=== PATIENT | male | born 1995 | race Caucasian/White ===

== ENCOUNTER 2016-08-25 06:35 | Emergency (ER) | payer OTHER ==
[2016-08-25] MEDS ORDERED: Sodium Chloride 0.9% 1,000 ML ONE (07:24)
[2016-08-25] MEDS ORDERED: Ondansetron HCl/PF 4 MG/2 ML Vial ONE (07:25)
[2016-08-25 07:38] LABS: PTT 28.1 SEC (22.9-36.1); Prothrombin Time 12.9 SEC (12.0-14.7)
[2016-08-25 07:40] LABS: D-Dimer Test Less than 0.27 *mcg/mL (0.27-0.43)
[2016-08-25 07:41] LABS: CRP (Inflammatory) Less than 0.50 mg/dL (= or < 0.5); Magnesium 2.5 mg/dL (1.6-2.6)
[2016-08-25 07:44] LABS: Band 4 % (5-11); Eosinophils 3 % (0-10); Hemoglobin 18.1 g/dL (14.0-18.0); Lymphocytes 39 % (21-51); MDiff Complete? YES; Mean Corpuscular HGB CONC 34.3 g/dL (32.0-36.0); Mean Corpuscular Hemoglobin 29.9 pg (27.0-31.0); Mean Corpuscular Volume 87.2 fl (80.0-94.0); Mean Platelet Volume 10.8 fL (7.4-10.4); Monocytes 3 % (0-10); Neutrophil 50 % (42-75); PLT Morphology Comment Appears Adequate; Platelet Count 210 thou/uL (130-400); RBC Distribution Width 11.4 % (11.5-14.5); RBC Morphology Normal; Red Blood Cell (RBC) Count 6.04 mill/uL (4.70-6.10); White Blood Cell (WBC) Count 15.8 thou/uL (4.8-10.8)
[2016-08-25 07:48] LABS: ALT (SGPT) 34 U/L (8-55); AST (SGOT) 20 U/L (5-34); Albumin 4.9 g/dL (3.5-5.0); Alkaline Phosphatase 76 U/L (40-150); Anion Gap 16 mmol/L (10-20); BUN (Urea Nitrogen) 9 mg/dL (8.9-20.6); Bilirubin, Total 0.5 mg/dL (0.2-1.2); CKMB 0.6 ng/mL (0-6.6); Calc. Creatinine Clearance 0 mL/min (70-130); Calcium 10.2 mg/dL (7.8-10.44); Carbon Dioxide 25 mmol/L (22-29); Chloride 105 mmol/L (98-107); Estimated GFR-MDRD 80; Globulin 3.3 g/dL (2.4-3.5); Glucose 94 mg/dL (70-105); Protein, Total 8.2 g/dL (6.0-8.3); Sodium 142 mmol/L (136-145); Troponin I Less than 0.010 ng/mL (< 0.028)
[2016-08-25 08:16] LABS: Amphetamine Not Detected (NotDetected); Barbiturates Screen Not Detected (NotDetected); Benzodiazepine Screen Not Detected (NotDetected); Cocaine Metabolite Screen Not Detected (NotDetected); Medtox Control Line Valid? VALID (VALID); Methadone Not Detected (NotDetected); Methamphetamine Not Detected (NotDetected); Opiate Screen Not Detected (NotDetected); Oxycodone Screen Not Detected (NotDetected); Phencyclidine (PCP) Not Detected (NotDetected); THC/Cannabinoid Screen Not Detected (NotDetected); Tricyclic Screen Not Detected (NotDetected)
[2016-08-25] MEDS ORDERED: HYDROcodone/Acetaminophen 10/325 mg Tablet ONE (08:35)
[2016-08-25] MEDS ORDERED: Amoxicillin/Potassium Clav 500 MG TAB ONE (08:37)
[2016-08-25] MEDS ORDERED: AMOXicillin 250 MG CAP ONE ×2 (08:38→08:40)
--- NOTE | 2016-08-25 09:25 | RAD ---
FRONTAL VIEW CHEST: Comparison: None. Indication: Neck pain, new onset. FINDINGS: Lungs are clear. No effusion or pneumothorax. Cardiac silhouette is normal in size. Osseous structur es are intact. IMPRESSION: No focal consolidation. POS: [facility]
--- NOTE | 2016-08-25 09:27 | CT ---
CT OF NECK WITH 3D REFORMATING: Clinical history: New onset neck pain. Comparison: None. FINDINGS: There is a degree of patient motion that distorts imaging of anatomy and limits the assessment. Ther e is a relative diminished contrast density within the intravascular aspect of the distal neck. 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 No evidence of an acute dissection of the major arterial system of the neck. No high grade occlusion of the carotid arterial system or vertebral arteries. Incidental note of right -sided laryngocele. IMPRESSION: No acute arterial pathology within the neck. POS: [facility]
== END 2016-08-25 08:52 | disposition home or self-care (01) ==
LOC: NAV ERS 06:35
DX: R07.9 Chest pain, unspecified (principal); K08.89 Other specified disorders of teeth and supporting structures; J45.909 Unspecified asthma, uncomplicated; F17.210 Nicotine dependence, cigarettes, uncomplicated
CPT/HCPCS: 36415; 70498; 71010; 80053; 80306; 82553; 83605; 83735; 84484; 85025; 85379; 85610; 85652; 85730; 86140; 93005; 96361; 96374; 96375; J2270; J2405; J7050

== ENCOUNTER 2018-02-01 13:01 | Emergency (ER) | payer SELFPAY ==
--- NOTE | 2018-02-01 14:20 | RAD ---
LEFT FINGER THREE VIEWS: History: Injury. Pain in the left ring finger. FINDINGS/IMPRESSION: No fracture or dislocation is seen. POS: [facility]
== END 2018-02-01 13:50 | disposition home or self-care (01) ==
LOC: NAV ERS 13:01
DX: S63.615A Unspecified sprain of left ring finger, initial encounter (principal); J45.909 Unspecified asthma, uncomplicated; Z87.891 Personal history of nicotine dependence; W19.XXXA Unspecified fall, initial encounter

== ENCOUNTER → 2018-06-09 | Emergency (ER) | payer SELFPAY ==
[~2018-06-09] MED LIST: Ketorolac Tromethamine 30 MG/ML VIAL ONE
--- NOTE | 2018-06-09 11:10 | RAD ---
SINGLE VIEW OF THE CHEST: COMPARISON: 08/25/2016. HISTORY: Chest pain. FINDINGS: Single view of the chest shows a normal sized cardiomediastinal silhouette. There is no evidence of c onsolidation, mass, or pleural effusion. The bones are unremarkable. IMPRESSION: No evidence of acute cardiopulmonary disease. POS: [facility]
== END ==
LOC: NAV ERS 09:43
DX: R07.9 Chest pain, unspecified (principal); G56.22 Lesion of ulnar nerve, left upper limb; J45.909 Unspecified asthma, uncomplicated; F17.210 Nicotine dependence, cigarettes, uncomplicated
CPT/HCPCS: 71045; 93005; 96372; J1885

== ENCOUNTER 2018-08-03 01:04 | Emergency (ER) | payer SELFPAY ==
[2018-08-03] MEDS ORDERED: Lidocaine 1% (PF) 30 ML VIAL ONE (01:24)
[2018-08-03] MEDS ORDERED: Ondansetron ODT 4 MG TAB ONE (01:43)
[2018-08-03] MEDS ORDERED: Morphine 4 MG/ML VIAL ONE (01:43)
[2018-08-03] MEDS ORDERED: Sulfameth/Trimethoprim DS 800-160mg TAB ONE (01:43)
== END 2018-08-03 02:15 | disposition home or self-care (01) ==
LOC: NAV ERS 01:04
DX: L05.01 Pilonidal cyst with abscess (principal); J45.909 Unspecified asthma, uncomplicated; F17.210 Nicotine dependence, cigarettes, uncomplicated
CPT/HCPCS: 96372; J2001; J2270; Q0162

== ENCOUNTER 2018-08-06 09:46 | Emergency (ER) | payer SELFPAY ==
[2018-08-06] MEDS ORDERED: Sodium Chloride 0.9% 1,000 ML ONE (10:17)
[2018-08-06] MEDS ORDERED: Clindamycin 300 MG/2 ML VIAL ONE (10:17)
[2018-08-06] MEDS ORDERED: Ondansetron PF 4 MG/2 ML Vial ONE (10:35)
[2018-08-06 10:37] LABS: #Basophils 0.2 thou/uL (0.0-0.2); #Eosinphils 0.1 thou/uL (0.0-0.7); #Lymphocytes 3.9 thou/uL (1.20-3.40); #Monocytes 1.1 thou/uL (0.11-0.59); #Neutrophils 11.3 thou/uL (1.40-6.50); %Eosinophils 0.8 % (0.0-10.0); %Lymphocytes 23.5 % (21.0-51.0); %Monocytes 6.4 % (0.0-10.0); %Neutrophils 68.4 % (42.0-75.0); Hemoglobin 16.2 g/dL (14.0-18.0); Mean Corpuscular HGB CONC 33.1 g/dL (32.0-36.0); Mean Corpuscular Hemoglobin 29.3 pg (27.0-31.0); Mean Corpuscular Volume 88.6 fL (78.0-98.0); Mean Platelet Volume 9.3 fL (7.4-10.4); Platelet Count 240 thou/uL (130-400); RBC Distribution Width 10.9 % (11.5-14.5); Red Blood Cell (RBC) Count 5.51 mill/uL (4.70-6.10); White Blood Cell (WBC) Count 16.6 thou/uL (4.8-10.8)
[2018-08-06 10:47] LABS: Bilirubin Small (Negative); Blood, Urine Negative (Negative); Clarity Clear (Clear); Glucose, Urine (Dipstick) Negative (Negative); Leukocyte Negative (Negative); Nitrite Negative (Negative); Protein, Urine (Dipstick) 30 mg/dL (Neg-Trace); pH, Urine 5.5 (5.0-9.0)
[2018-08-06 10:53] LABS: Specific Gravity, Urine 1.033 (1.002-1.036)
[2018-08-06 10:55] LABS: ALT (SGPT) 24 U/L (8-55); AST (SGOT) 27 U/L (5-34); Albumin 4.4 g/dL (3.5-5.0); Alkaline Phosphatase 67 U/L (40-150); Anion Gap 17 mmol/L (10-20); BUN (Urea Nitrogen) 11 mg/dL (8.9-20.6); Bilirubin, Total 0.6 mg/dL (0.2-1.2); Calc. Creatinine Clearance 0 mL/min (70-130); Calcium 9.9 mg/dL (7.8-10.44); Carbon Dioxide 23 mmol/L (22-29); Chloride 100 mmol/L (98-107); Estimated GFR-MDRD 56; Globulin 3.1 g/dL (2.4-3.5); Glucose 112 mg/dL (70-105); Protein, Total 7.5 g/dL (6.0-8.3); Sodium 136 mmol/L (136-145)
[2018-08-06 10:55] LABS: Bacteria/HPF None Seen HPF (None Seen); Hyaline Casts/LPF 0-3 HYALINE CAST LPF (0-3 Hyaline); Other Microscopic Description 4+ MUCUS; RBC/HPF 0-3 HPF (0-3); Squamous Epithelial 0-3 HPF (0-3); WBC/HPF None Seen HPF (0-3)
== END 2018-08-06 12:00 | disposition home or self-care (01) ==
LOC: NAV ERS 09:46
DX: R11.2 Nausea with vomiting, unspecified (principal); L05.01 Pilonidal cyst with abscess; J45.909 Unspecified asthma, uncomplicated; F17.210 Nicotine dependence, cigarettes, uncomplicated; Z79.899 Other long term (current) drug therapy
CPT/HCPCS: 80053; 81003; 81015; 85025; 96361; 96365; 96375; J2405; J3490; J7050

== ENCOUNTER 2019-02-07 07:29 | Emergency (ER) | payer SELFPAY ==
[2019-02-07] MEDS ORDERED: Sodium Chloride 0.9% 1,000 ML ONE (07:49)
[2019-02-07] MEDS ORDERED: Benzonatate 100 MG CAP ONE (07:49)
[2019-02-07] MEDS ORDERED: Ondansetron PF 4 MG/2 ML Vial ONE (07:49)
[2019-02-07 08:07] LABS: #Basophils 0.1 thou/uL (0.0-0.2); #Eosinphils 0.2 thou/uL (0.0-0.7); #Lymphocytes 3.2 thou/uL (1.20-3.40); #Monocytes 1.1 thou/uL (0.11-0.59); #Neutrophils 6.3 thou/uL (1.40-6.50); %Basophils 1.1 % (0.0-1.0); %Eosinophils 2.2 % (0.0-10.0); %Lymphocytes 28.8 % (21.0-51.0); %Monocytes 10.4 % (0.0-10.0); %Neutrophils 57.6 % (42.0-75.0); Hemoglobin 16.6 g/dL (14.0-18.0); Mean Corpuscular HGB CONC 33.8 g/dL (32.0-36.0); Mean Corpuscular Hemoglobin 30.2 pg (27.0-31.0); Mean Corpuscular Volume 89.2 fL (78.0-98.0); Mean Platelet Volume 10.6 fL (7.4-10.4); Platelet Count 206 thou/uL (130-400); RBC Distribution Width 11.4 % (11.5-14.5); Red Blood Cell (RBC) Count 5.49 mill/uL (4.70-6.10)
[2019-02-07 08:24] LABS: ALT (SGPT) 27 U/L (8-55); AST (SGOT) 19 U/L (5-34); Albumin 4.4 g/dL (3.5-5.0); Alkaline Phosphatase 64 U/L (40-110); Anion Gap 15 mmol/L (10-20); BUN (Urea Nitrogen) 7 mg/dL (8.9-20.6); Bilirubin, Total 0.6 mg/dL (0.2-1.2); Calc. Creatinine Clearance 0 mL/min (70-130); Calcium 9.3 mg/dL (7.8-10.44); Carbon Dioxide 22 mmol/L (22-29); Chloride 104 mmol/L (98-107); Estimated GFR-MDRD Greater than 90; Globulin 2.6 g/dL (2.4-3.5); Glucose 97 mg/dL (70-105); Potassium 3.5 mmol/L (3.5-5.1); Sodium 137 mmol/L (136-145)
[2019-02-07 09:11] LABS: Bilirubin Negative (Negative); Clarity Clear (Clear); Glucose, Urine (Dipstick) Negative (Negative); Leukocyte Negative (Negative); Nitrite Negative (Negative); Protein, Urine (Dipstick) Negative (Neg-Trace); Urobilinogen 0.2 mg/dL (Less than 2)
[2019-02-07 09:14] LABS: Blood, Urine Trace (Negative)
[2019-02-07 09:28] LABS: Bacteria/HPF Rare-Few HPF (None Seen); RBC/HPF 0-3 HPF (0-3); Squamous Epithelial None Seen HPF (0-3); WBC/HPF None Seen HPF (0-3)
[2019-02-07 09:29] LABS: Mucous/LPF Few LPF (<2+)
[2019-02-07 09:35] LABS: Amphetamine Not Detected (NotDetected); Barbiturates Screen Not Detected (NotDetected); Benzodiazepine Screen Not Detected (NotDetected); Cocaine Metabolite Screen Not Detected (NotDetected); Medtox Control Line Valid? VALID (VALID); Methadone Not Detected (NotDetected); Methamphetamine Not Detected (NotDetected); Opiate Screen Not Detected (NotDetected); Oxycodone Screen Not Detected (NotDetected); Phencyclidine (PCP) Not Detected (NotDetected); THC/Cannabinoid Screen Detected (NotDetected); Tricyclic Screen Not Detected (NotDetected)
== END 2019-02-07 09:24 | disposition home or self-care (01) ==
LOC: NAV ERS 07:29
DX: J20.9 Acute bronchitis, unspecified (principal); J45.909 Unspecified asthma, uncomplicated; F17.210 Nicotine dependence, cigarettes, uncomplicated
CPT/HCPCS: 80053; 80306; 81003; 81015; 85025; 87070; 87205; 96361; 96374; J2405; J7050

== ENCOUNTER 2019-10-18 10:30 | Emergency (ER) | payer OTHER, SELFPAY ==
--- NOTE | 2019-10-18 11:08 | RAD ---
EXAM: 3 views of the right ankle HISTORY: Ankle pain COMPARISON: None FINDINGS: 3 views of the right ankle shows no evidence of acute fracture or dislocation. No soft tiss ue swelling is seen. No degenerative changes are present. IMPRESSION: No evidence of acute osseous abnormality.
== END 2019-10-18 11:25 | disposition home or self-care (01) ==
LOC: NAV ERS 10:30
DX: S93.421A Sprain of deltoid ligament of right ankle, initial encounter (principal); F17.210 Nicotine dependence, cigarettes, uncomplicated; X50.1XXA Overexertion from prolonged static or awkward postures, initial encounter

== ENCOUNTER 2020-03-27 16:51 | Emergency (ER) | payer OTHER, SELFPAY ==
[2020-03-28 18:29] LABS: SARS-CoV-2 MS2 Positive; SARS-CoV-2 N Gene Negative; SARS-CoV-2 S Gene Negative; SARS-CoV-2 by NAA Not Detected (NotDetected); SARS-CoV-2 orf1ab Negative
== END 2020-03-27 18:00 | disposition home or self-care (01) ==
LOC: NAV ERS 16:51
DX: J02.9 Acute pharyngitis, unspecified (principal); J04.0 Acute laryngitis; J45.909 Unspecified asthma, uncomplicated; F17.210 Nicotine dependence, cigarettes, uncomplicated
CPT/HCPCS: 87081; 87430; 87635; 99283; U0003

== ENCOUNTER 2020-10-06 16:32 | Outpatient (CLI) | payer BC | END 2020-10-06 16:33 | disposition home or self-care (01) | LOC: NAV RAD 16:32 | PROVIDERS: ATTEND Family Medicine | DX: M79.641 Pain in right hand (principal) ==

== ENCOUNTER 2020-12-12 19:57 | Emergency (ER) | payer OTHER, BC ==
[2020-12-12] MEDS ORDERED: Bacitracin 1 PK ONE (20:16)
[2020-12-12] MEDS ORDERED: HYDROcodone/Acetaminophen 5/325 mg Tablet ONE (21:12)
== END 2020-12-12 21:22 | disposition home or self-care (01) ==
LOC: NAV ERS 19:57
DX: S29.012A Strain of muscle and tendon of back wall of thorax, initial encounter (principal); S80.01XA Contusion of right knee, initial encounter; S50.812A Abrasion of left forearm, initial encounter; S30.811A Abrasion of abdominal wall, initial encounter; J45.909 Unspecified asthma, uncomplicated; V49.9XXA Car occupant (driver) (passenger) injured in unspecified traffic accident, initial encounter
CPT/HCPCS: 72072

== ENCOUNTER 2020-12-23 12:37 | Outpatient (CLI) | payer OTHER, BC | END 2020-12-23 12:38 | disposition home or self-care (01) | LOC: NAV RAD 12:37 | PROVIDERS: ATTEND Family Medicine | DX: M25.512 Pain in left shoulder (principal); R07.81 Pleurodynia; L01.00 Impetigo, unspecified; V29.9XXD Motorcycle rider (driver) (passenger) injured in unspecified traffic accident, subsequent encounter ==